=== PATIENT | male | born 1965 | race African-American/Black ===

== ENCOUNTER 2016-11-20 10:09 | Emergency (ER) | payer SELFPAY ==
[~2016-11-20] VITALS: Ht 157.5 cm; Wt 52.7 kg
[2016-11-20 11:30] VITALS: BP 152/95
[2016-11-20] MEDS ORDERED: IV NORMAL SALINE 1000ML BAG 1,000 ML IV SCH (11:38)
[2016-11-20] MEDS ORDERED: ONDANSETRON PF 4 MG/2 ML VIAL. IV ONE (11:45)
[2016-11-20] MEDS ORDERED: FAMOTIDINE 20 MG/2 ML VIAL IVP ONE (11:45)
[2016-11-20] MEDS ORDERED: MAG HYDROX/AL HYDROX/SIMETH 30 ML ORAL.SUSP PO ONE (11:45)
[2016-11-20 11:50] LABS: BASO % 0 % (0-3); EOS % 1 % (0-3); HEMATOCRIT 41.5 % (39.0-53.0); HEMOGLOBIN 13.5 g/dL (13.0-17.5); LYMPH # 1.7 x10^3/uL (1.0-4.8); LYMPH % 25 % (24-48); MEAN CORPUSCULAR HEMOGLOBIN 28 pg (25-35); MEAN CORPUSCULAR HGB CONC 32 g/dL (31-37); MEAN CORPUSCULAR VOLUME 87 fL (79-100); MONO % 8 % (0-9); NEUT % 65 % (31-73); PLATELET COUNT 330 x10^3/uL (140-400); RED BLOOD COUNT 4.76 x10^6/uL (4.30-5.70); RED CELL DISTRIBUTION WIDTH 13.2 % (11.5-14.5); WHITE BLOOD COUNT 6.7 x10^3/uL (4.0-11.0)
[2016-11-20 11:56] LABS: CALCIUM 9.3 mg/dL (8.5-10.1); CREATININE 0.9 mg/dL (0.7-1.3); GFR 108.5; POTASSIUM 3.1 mmol/L (3.5-5.1)
[2016-11-20 12:04] LABS: ALBUMIN 4.4 g/dL (3.4-5.0); ALBUMIN/GLOBULIN RATIO 1.1 (1.0-1.7); TOTAL BILIRUBIN 0.5 mg/dL (0.2-1.0); TOTAL PROTEIN 8.3 g/dL (6.4-8.2)
--- NOTE | 2016-11-20 12:46 | EKG ---
[facility] [address] [place] [address] Test Date: 2016-11-20 Test Time: 12:17:01 Pat Name: GUANAKO CANTU Department: Patient ID: [id number] Room: Gender: Digital Media Planner: [facility] ER : 1965 Requested By: ZACHARY GRAVES Order Number: [id number] Reading MD: Benson Houser Measurements Intervals [place] Rate: 55 P: 39 LA: 150 QRS: -28 QRSD: 76 T: -1 QT: 420 QTc: 404 Interpretive Statements SINUS RHYTHM LEFTWARD AXIS T ABNORMALITY IN ANTEROLATERAL LEADS ABNORMAL ECG Electronically Signed On 11-20-2016 15:00:59 [employer] by Benson Houser
[2016-11-20 13:06] LABS: BILIRUBIN,URINE NEGATIVE (NEG); GLUCOSE,URINE NEGATIVE (NEG); NITRITE,URINE NEGATIVE (NEG); PH,URINE 6.5; PROTEIN,URINE NEGATIVE (NEG-TRACE)
[2016-11-20 13:15] LABS: BACTERIA,URINE 0 /HPF (0-FEW); RBC,URINE 0 /HPF (0-2); WBC,URINE 0 /HPF (0-4)
--- NOTE | 2016-11-20 13:34 | PHYS DOC ---
Past Medical History Past Medical History: No Pertinent History, Other Additional Past Medical Histor: GASTROPARESIS Past Surgical History: Other Additional Past Surgical Histo: testicular RELEASE AT 10 MO. Alcohol Use: None Drug Use: None Adult General Chief Complaint Chief Complaint: NAUSEA/VOMITING/DIARRHA HPI HPI Patient is a 51 year old male who presents with complaint of vomiting and diarrhea. Patient states that his symptoms have been present for the past 2 days. Patient states that he has had numerous episodes of vomiting and diarrhea. Patient states that his daughter had symptoms prior and was diagnosed with viral gastroenteritis. Patient has not had any fevers. Patient denies any abdominal pain but states that he is having abdominal discomfort due to his nausea. Patient has been having difficulty tolerating both liquids and solids. Patient has not taken any medications to help with symptoms. Review of Systems Review of Systems Constitutional: Denies fever or chills [] Eyes: Denies change in visual acuity, redness, or eye pain [] HENT: Denies nasal congestion or sore throat [] Respiratory: Denies cough or shortness of breath [] Cardiovascular: No additional information not addressed in HPI [] GI: Vomiting, diarrhea, denies abdominal pain or bloody stools [] : Denies dysuria or hematuria [] Musculoskeletal: Denies back pain or joint pain [] Integument: Denies rash or skin lesions [] Neurologic: Denies headache, focal weakness or sensory changes [] Endocrine: Denies polyuria or polydipsia [] Current Medications Current Medications Current Medications Medications (Trade) Dose Ordered Sig/Omari Start Time Stop Time Status Last Admin Dose Admin Al Hydroxide/Mg Hydroxide (Mylanta Plus Xs) 30 ml 1X ONCE 11/20/16 11:45 11/20/16 11:46 DC 11/20/16 12:17 30 ML Famotidine (Pepcid) 20 mg 1X ONCE 11/20/16 11:45 11/20/16 11:46 DC 11/20/16 12:19 20 MG Ondansetron HCl (Zofran) 4 mg 1X ONCE 11/20/16 11:45 11/20/16 11:46 DC 11/20/16 12:16 4 MG Potassium Chloride (Klor-Con) 40 meq 1X ONCE 11/20/16 14:00 11/20/16 14:01 DC 11/20/16 13:57 40 MEQ Sodium Chloride (Iv Sodium Chloride 0.9% 1000ml Bag) 1,000 ml @ 1,000 mls/hr Q1H 11/20/16 11:38 11/20/16 12:37 DC 11/20/16 12:15 1,000 MLS/HR Allergies Allergies Allergies Coded Allergies Type Severity Reaction Last Updated Verified No Known Drug Allergies 10/02/15 No Physical Exam Physical Exam Constitutional: Alert, afebrile, appears in mild discomfort. [] HENT: Normocephalic, atraumatic, bilateral external ears normal, oropharynx moist, no oral exudates, nose normal. [] Eyes: PERRLA, EOMI, conjunctiva normal, no discharge. [] Neck: Normal range of motion, no tenderness, supple, no stridor. [] Cardiovascular:Heart rate regular rhythm, no murmur [] Lungs & Thorax: Bilateral breath sounds clear to auscultation [] Abdomen: Bowel sounds normal, soft, no tenderness, no masses, no pulsatile masses. [] Skin: Warm, dry, no erythema, no rash. [] Back: No tenderness, no CVA tenderness. [] Extremities: No tenderness, no cyanosis, no clubbing, ROM intact, no edema. [] Neurologic: Alert and oriented X 3, normal motor function, normal sensory function, no focal deficits noted. [] Current Patient Data Vital Signs Vital Signs Date Time Temp Pulse Resp B/P Pulse Ox O2 Delivery O2 Flow Rate FiO2 11/20/16 11:30 62 152/95 100 Room Air 11/20/16 10:50 98.9 16 98.9 Lab Values Laboratory Tests Test 11/20/16 10:52 11/20/16 12:46 White Blood Count 6.7x10^3/uL (4.0-11.0) Red Blood Count 4.76x10^6/uL (4.30-5.70) Hemoglobin 13.5g/dL (13.0-17.5) Hematocrit 41.5% (39.0-53.0) Mean Corpuscular Volume 87fL (79-100) Mean Corpuscular Hemoglobin 28pg (25-35) Mean Corpuscular Hemoglobin Concent 32g/dL (31-37) Red Cell Distribution Width 13.2% (11.5-14.5) Platelet Count 330x10^3/uL (140-400) Neutrophils (%) (Auto) 65% (31-73) Lymphocytes (%) (Auto) 25% (24-48) Monocytes (%) (Auto) 8% (0-9) Eosinophils (%) (Auto) 1% (0-3) Basophils (%) (Auto) 0% (0-3) Neutrophils # (Auto) 4.4x10^3uL (1.8-7.7) Lymphocytes # (Auto) 1.7x10^3/uL (1.0-4.8) Monocytes # (Auto) 0.6x10^3/uL (0.0-1.1) Eosinophils # (Auto) 0.1x10^3/uL (0.0-0.7) Basophils # (Auto) 0.0x10^3/uL (0.0-0.2) Sodium Level 141mmol/L (136-145) Potassium Level 3.1mmol/L (3.5-5.1) L Chloride Level 104mmol/L (98-107) Carbon Dioxide Level 31mmol/L (21-32) Anion Gap 6 (6-14) Blood Urea Nitrogen 7mg/dL (8-26) L Creatinine 0.9mg/dL (0.7-1.3) Estimated GFR (Cockcroft-Gault) 108.5 BUN/Creatinine Ratio 8 (6-20) Glucose Level 94mg/dL (70-99) Calcium Level 9.3mg/dL (8.5-10.1) Total Bilirubin 0.5mg/dL (0.2-1.0) Aspartate Amino Transferase (AST) 17U/L (15-37) Alanine Aminotransferase (ALT) 16U/L (16-63) Alkaline Phosphatase 62U/L (46-116) Total Protein 8.3g/dL (6.4-8.2) H Albumin 4.4g/dL (3.4-5.0) Albumin/Globulin Ratio 1.1 (1.0-1.7) Lipase 64U/L (73-393) L Urine Collection Type Unknown Urine Color Yellow Urine Clarity Clear Urine pH 6.5 Urine Specific [place] 1.015 Urine Protein Negativemg/dL (NEG-TRACE) Urine Glucose (UA) Negativemg/dL (NEG) Urine Ketones (Stick) Tracemg/dL (NEG) Urine Blood Negative (NEG) Urine Nitrite Negative (NEG) Urine Bilirubin Negative (NEG) Urine Urobilinogen Dipstick 1.0mg/dL (0.2 mg/dL) Urine Leukocyte Esterase Negative (NEG) Urine RBC 0/HPF (0-2) Urine WBC 0/HPF (0-4) Urine Bacteria 0/HPF (0-FEW) Urine Mucus Marked/LPF Laboratory Tests 11/20/16 10:52 Laboratory Tests 11/20/16 10:52 EKG EKG Interpreted by me: Heart rate 55, sinus rhythm, normal intervals, leftward axis , no acute ST/T-wave abnormalities present [] Radiology/Procedures Radiology/Procedures Not performed [] Course & Med Decision Making Course & Med Decision Making Pertinent Labs and Imaging studies reviewed. (See chart for details) Patient was treated with IV Zofran, Pepcid, oral Maalox, and IV fluids. On reevaluation, patient states he feels much better at this time. Patient was discharged with prescription for Zofran. Recommended follow-up with primary doctor in 2-3 days. Advised return to emergency department for any worsening symptoms. Patient voiced understanding and in agreement with treatment plan. Dragon Disclaimer Dragon Disclaimer This electronic medical record was generated, in whole or in part, using a voice recognition dictation system. Departure Departure Impression: Primary Impression: Gastroenteritis Disposition: 01 HOME, SELF-CARE Condition: IMPROVED Referrals: ANNALEE WALKER MD (PCP) Patient Instructions: Viral Gastroenteritis Additional Instructions: Follow-up with primary doctor in the next 2-3 days. Return to the emergency department for any worsening symptoms. Scripts Ondansetron (Zofran Odt)4 Mg Tab.rapdis4 Mg PO Q8HRS PRN NAUSEA/VOMITING #10 TAB Prov:ZACHARY GRAVES MD 11/20/16 ZACHARY GRAVES MD Nov 20, 2016 13:34
[2016-11-20] MEDS ORDERED: ONDA4TAB10 PO (13:37)
[2016-11-20] MEDS ORDERED: POTASSIUM CHLORIDE 20 MEQ TABLET.ER. PO ONE (14:00)
== END 2016-11-20 14:02 | disposition home or self-care (01) ==
LOC: ER 10:09
DX: K52.9 Noninfective gastroenteritis and colitis, unspecified (principal); K31.84 Gastroparesis
CPT/HCPCS: 36415; 80053; 81001; 83690; 85027; 93005; 96361; 96374; 96375; 99285; J2405; J7030; S0028

== ENCOUNTER 2016-11-22 02:16 | Emergency (ER) | payer SELFPAY ==
[~2016-11-22] VITALS: Ht 157.5 cm; Wt 52.6 kg
[~2016-11-22 02:16] MED LIST: ONDA4TAB10 PO
[2016-11-22 04:42] VITALS: BP 140/94
--- NOTE | 2016-11-22 05:09 | PHYS DOC ---
Past Medical History Past Medical History: No Pertinent History, Other Additional Past Medical Histor: GASTROPARESIS Past Surgical History: Other Additional Past Surgical Histo: testicular RELEASE AT 10 MO. Alcohol Use: None Drug Use: None Adult General Chief Complaint Chief Complaint: MULTIPLE COMPLAINTS HPI HPI Patient is a 51 year old male who presents with an episode of watery diarrhea and a mild headache. He was at work tonight and had these symptoms, so his boss recommended returning to the emergency department for evaluation. He was here 2 days ago for headache, nausea or vomiting, and diarrhea. He was prescribed Zofran, of which she did not take. He states his symptoms are improving on the whole. He is tolerating oral intake. He denies vision changes, chest pain, cough , abdominal pain, numbness, tingling, weakness, dizziness, lightheadedness. Review of Systems Review of Systems Constitutional: Denies fever or chills [] Eyes: Denies change in visual acuity, redness, or eye pain [] HENT: Denies nasal congestion or sore throat [] Respiratory: Denies cough or shortness of breath [] Cardiovascular: No additional information not addressed in HPI [] GI: Denies abdominal pain, nausea, vomiting, bloody stools [] : Denies dysuria or hematuria [] Musculoskeletal: Denies back pain or joint pain [] Integument: Denies rash or skin lesions [] Neurologic: Denies focal weakness or sensory changes [] Endocrine: Denies polyuria or polydipsia [] Allergies Allergies Allergies Coded Allergies Type Severity Reaction Last Updated Verified No Known Drug Allergies 10/02/15 No Physical Exam Physical Exam Constitutional: Well developed, well nourished, no acute distress, non-toxic appearance. [] HENT: Normocephalic, atraumatic, bilateral external ears normal, oropharynx moist, no oral exudates, nose normal. [] Eyes: PERRLA, EOMI. [] Neck: Normal range of motion, supple. [] Cardiovascular:Heart rate regular rhythm [] Lungs & Thorax: Bilateral breath sounds clear to auscultation [] Abdomen: Bowel sounds normal, soft, no tenderness. [] Skin: Warm, dry, no erythema, no rash. [] Back: No tenderness, no CVA tenderness. [] Extremities: ROM intact, no edema. [] Neurologic: Alert and oriented X 3, normal motor function, normal sensory function, no focal deficits noted, cranial nerves II through XII intact. [] Psychologic: Affect normal, judgement normal, mood normal. [] Current Patient Data Vital Signs Vital Signs Date Time Temp Pulse Resp B/P Pulse Ox O2 Delivery O2 Flow Rate FiO2 11/22/16 04:42 97.3 64 20 140/94 98 Room Air 97.3 Course & Med Decision Making Course & Med Decision Making Pertinent Labs and Imaging studies reviewed. (See chart for details) He appears well on exam. Encouraged continued supportive care at home. Return precautions given. He understands and agrees with plan. Dragon Disclaimer Dragon Disclaimer This electronic medical record was generated, in whole or in part, using a voice recognition dictation system. Departure Departure Impression: Primary Impression: Diarrhea Additional Impression: Headache Disposition: HOME, SELF-CARE Condition: STABLE Referrals: ANNALEE WALKER MD (PCP) Patient Instructions: Diarrhea, [id number] Additional Instructions: Take ibuprofen or Tylenol as needed for pain. Follow-up with your primary care doctor. Return for any concerns. Problem Qualifiers Primary Impression: Diarrhea Diarrhea type: presumed infectious Qualified Code: A09 - Infectious gastroenteritis and colitis, unspecified Additional Impression: Headache Headache type: unspecified Headache chronicity pattern: acute headache Intractability: not intractable Qualified Code: R51 - Headache Frank SOOD MD Nov 22, 2016 05:08
== END 2016-11-22 05:26 | disposition home or self-care (01) ==
LOC: ER 02:16
DX: R19.7 Diarrhea, unspecified (principal); R51 Headache
CPT/HCPCS: 99281